=== PATIENT | female | born 1975 | race Caucasian/White ===

== ENCOUNTER 2017-03-22 15:27 | Emergency (ER) | payer SELFPAY ==
--- NOTE | ~2017-03-22 | CR230 ---
[facility] A Service of [facility] & [facility] RADIOLOGY TEXT RESULTS PATIENT: FRANK STORY LOCATION: CFTX : 77 UNIT #: [id number] AGE: [address]: Afia Kenyon APRN SEX: F ORDER DR: [id number] [facility] [address] [place], [place] [address] [id number] E MR#: [id number] Acc #: [id number] NAME: FRANK STORY : 1975 SEX: F STUDY DATE/TIME: 03/22/2017 14:50 UNIT: [facility] ROOM: STUDY DESCRIPTION: CR Shoulder Min 2 View Rt Attending Physician: Afia Kenyon A.P.R.N. Ordering Physician: Ed Paulie Ryder M.D. Primary Care Physician: Primary Care Physician No MEDICAL IMAGING REPORT This report is preliminary unless electronic signature is present EXAM Right shoulder HISTORY Right shoulder pain for 4 days with pain while moving arm. FINDINGS AP view with internal and external rotation of the shoulder girdle shows satisfactory relationship of the humeral head and glenoid fossa. The joint space is normal. There is no identifiable fracture or dislocation or bony destructive process about the shoulder girdle anatomy. The acromioclavicular joint is normal. There is no radiopaque foreign body in the region. IMPRESSION Normal shoulder. Dictated by... Chuy Umana M.D. THIS IS AN ELECTRONICALLY VERIFIED REPORT Chuy Umana M.D. at 03/23/2017 6:08 AM WILFREDO/psc TD: 03/22/2017 17:08 JOB #: [id number] MEDICAL IMAGING REPORT Page 1 of 1 COPY
== END 2017-03-22 16:17 | disposition home or self-care (01) ==
LOC: CFTX 15:27
DX: S46.911A Strain of unspecified muscle, fascia and tendon at shoulder and upper arm level, right arm, initial encounter (principal); F17.210 Nicotine dependence, cigarettes, uncomplicated; X58.XXXA Exposure to other specified factors, initial encounter; Y92.9 Unspecified place or not applicable
CPT/HCPCS: 73030; 99283

== ENCOUNTER 2017-03-30 18:51 | Emergency (ER) | payer SELFPAY | END 2017-03-30 19:45 | disposition home or self-care (01) | LOC: CED 18:51 → CFTX 18:51 | DX: S46.811A Strain of other muscles, fascia and tendons at shoulder and upper arm level, right arm, initial encounter (principal); F17.210 Nicotine dependence, cigarettes, uncomplicated; X50.1XXA Overexertion from prolonged static or awkward postures, initial encounter | CPT/HCPCS: 99283 ==